=== PATIENT | female | born 1955 | race Caucasian/White ===

== ENCOUNTER → 2017-01-07 | Outpatient (CLI) | payer MEDICARE ==
[~2017-01-07] MED LIST: ADVAIR 250-501 EAC1 INH; ASPIRIN81 MG PO; LOC PO; SPIRIVA18 MCG INH; TYLENOL325 M1 PO
--- NOTE | ~2017-01-07 | ST ---
Unit #: [id number] #: [id number] Patient: ILDEFONSO MCKAY [id number] [facility]. [address] [address] [id number] O MR#: [id number] NAME: ILDEFONSO MCKAY : 1955 SEX: F STUDY DATE/TIME: 01/07/2017 UNIT: [facility] ROOM: STUDY DESCRIPTION: Stress Test Attending Physician: Mayr Arnold M.D. Referring Physician: Mary Arnold M.D. Primary Care Physician: hSanika Boggs A.P.R.N. CARDIOLOGY REPORT EXAM EKG Portion of a Lexiscan Cardiolite Stress Test REASON FOR TESTING Chest pain, chronic shortness of breath and history of an [place]. DESCRIPTION Baseline EKG shows sinus tachycardia, resting rate of 116 beats per minute. There was no arrhythmia to note. The patient actually was scheduled for a treadmill testing but she had severe dyspnea on exertion and just getting over to the chair tired her out and she became short of breath. We switched her to a Lexiscan. A total of 0.4 mg of Lexiscan was injected per protocol followed by a Cardiolite. The patient's symptoms did include come shortness of breath which were there prior to the procedure. Her lungs were actually clear, however. There were no ST changes or arrhythmias noted during the procedure. However, she could become very hypotensive. Her resting blood pressure was 140/91, dropped to 87/52. About 100 mL of fluids were given during the procedure. She responded with her heart rate increasing back up to 135/75. Her heart rate stayed tachycardic. Her resting heart rate of 116 pete to a maximum heart rate of 130. Test was stopped due to protocol completion. This is a nondiagnostic test due to her symptoms. She was switched to a Lexiscan. She was very, very short of breath during the procedure. She became hypotensive. However, I did not notice any significant ST depression or elevation. She had no arrhythmias during the procedure. Please correlate with Cardiolite imaging. Dictated by... Addie Adames APRN for Rd Arshad TD: 01/07/2017 12:15 JOB #: [id number] Unit #: [id number] #: [id number] Patient: ILDEFONSO MCKAY CARDIOLOGY REPORT Page 1 of 1 X CARDIOLOGY REPORT
--- NOTE | ~2017-01-07 | TH ---
Unit #: [id number] #: [id number] Patient: ILDEFONSO MCKAY [id number] [address] [address] [id number] O MR#: [id number] NAME: ILDEFONSO MCKAY : 1955 SEX: F STUDY DATE/TIME: 01/07/2017 UNIT: [facility] ROOM: STUDY DESCRIPTION: Attending Physician: Mary Arnold M.D. Referring Physician: Mary Arnold M.D. Primary Care Physician: Shanika Boggs CARDIOLOGY REPORT EXAM Lexiscan Cardiolite stress test, nuclear portion. PROCEDURE Using technetium 99m labeled Cardiolite, rest and stress SPECT images were obtained. Multiple SPECT images were obtained in various views including horizontal and vertical long axis and short axis views of the left ventricle. Images were obtained by gated SPECT method. The patient was administered 10.89 mCi of Cardiolite at rest. The patient was administered 34.5 mCi of Cardiolite after Lexiscan infusion was completed. On the stress images, there is normal perfusion noted. The rest images show normal perfusion. Comparing rest and stress images, there is no stress-induced ischemia noted. The left ventricular ejection fraction is calculated to be 92%. There is no focal wall motion abnormality seen. CONCLUSION 1. No obvious stress-induced ischemia noted. 2. The left ventricular ejection fraction is calculated to be 92%. 3. There is no focal wall motion abnormality seen. 4. The left ventricular size is extremely small. 5. Normal Lexiscan Cardiolite stress test. 6. Technically extremely limited study due to significant gut uptake. Clinical correlation is requested. Dictated by... Rd Arshad TD: 01/07/2017 15:54 JOB #: [id number] Unit #: [id number] #: [id number] Patient: ILDEFONSO MCKAY CARDIOLOGY REPORT Page 1 of 1 X Mary Arnold MD <ELECTRONICALLY SIGNED> 05/07/17 2891 CARDIOLOGY REPORT
[2017-01-07 10:53] LABS: CHOLESTEROL 181 mg/dL (0-200); HDL CHOLESTEROL 61 mg/dL (35-95); LDL CHOLESTEROL 96 mg/dL (-130); LDL/HDL RATIO 2 RATIO (0-4); TRIGLYCERIDES 119 mg/dL (10-160)
== END | disposition home or self-care (01) ==
LOC: CNUC 08:56
PROVIDERS: Internal Medicine Cardiovascular Disease
DX: R07.9 Chest pain, unspecified (principal); J44.9 Chronic obstructive pulmonary disease, unspecified; I25.10 Atherosclerotic heart disease of native coronary artery without angina pectoris; R53.83 Other fatigue
CPT/HCPCS: 36415; 78452; 80061; 84443; 93017; A9500; J2785